=== PATIENT | male | born 1930 | race Caucasian/White ===

== ENCOUNTER 2017-02-06 16:36 | Inpatient (IN) | payer MEDICARE ==
[~2017-02-06] VITALS: Ht 172.7 cm; Wt 70.0 kg
[2017-02-06] MEDS ORDERED: SODIUM CHLORIDE 0.9% 1,000 ML IV ONE (16:39)
[2017-02-06] MEDS ORDERED: CEFTRIAXONE PMX 1GM/50ML 50 ML IVPB ONE (17:00)
[2017-02-06] MEDS ORDERED: SODIUM CHLORIDE 0.9% 1,000ML IVBOLUS ONE (17:00)
[2017-02-06] MEDS ORDERED: SODIUM CHLORIDE FLUSH 10ML SYR IVF ONE (17:00)
[2017-02-06] MEDS ORDERED: PLEASE ENTER ALLERGIES MC SCH ×2 (17:00)
[2017-02-06] MEDS ORDERED: PLEASE ENTER HEIGHT AND WEIGHT MC SCH (17:00)
[2017-02-06] MEDS ORDERED: CEFTRIAXONE PMX 1GM/50ML 50 ML ONE (17:19)
[2017-02-06] MEDS ORDERED: IBUPROFEN 200 MG TABLET ONE (17:19)
[2017-02-06 17:20] LABS: WHITE BLOOD COUNT 18.6 x10^3/uL (3.4-10)
[2017-02-06 17:33] LABS: ASPARTATE AMINO TRANSFERASE 18 U/L (15-37); BLOOD UREA NITROGEN 16 mg/dL (7-18)
[2017-02-06 17:59] LABS: DIFF TOTAL CELLS COUNTED 100 CELL DIFF
[2017-02-06] MEDS ORDERED: IBUPROFEN 200 MG TABLET PO ONE (18:00)
[2017-02-06] MEDS ORDERED: ALBUTEROL/IPRATROPIUM 2.5MG/0.5MG, 3 ML ONE (18:12)
[2017-02-06 18:13] LABS: VERIFY COUNTS? YES
[2017-02-06] MEDS ORDERED: SODIUM CHLORIDE FLUSH 10ML SYR IVF PRN (18:30)
[2017-02-06] MEDS ORDERED: OMEP20TA62 PO (18:35)
[2017-02-06] MEDS ORDERED: METH10TA6 PO (18:35)
[2017-02-06] MEDS ORDERED: SIMV10TA3 PO (18:35)
[2017-02-06] MEDS ORDERED: APIX5TAB PO (18:35)
[2017-02-06] MEDS ORDERED: AMIO100T4 PO (18:35)
[2017-02-06] MEDS ORDERED: METO25TA91 PO (18:35)
[2017-02-06] MEDS: SODIUM CHLORIDE 0.9% 1,000 ML IV SCH (20:33)
[2017-02-06] MEDS ORDERED: hydrALAzine 20 MG/ML, 1ML IVPush PRN (21:00)
[2017-02-06] MEDS ORDERED: BISACODYL 10 MG SUPP PR PRN (21:00)
[2017-02-06] MEDS ORDERED: OXYcodone IR 5MG TABLET PO PRN (21:00)
[2017-02-06] MEDS: METOPROLOL SUCCINATE 25 MG TAB.ER.24H PO SCH (21:00)
[2017-02-06] MEDS ORDERED: ENALAPRILAT 1.25 MG/ML, 2ML IVPush PRN (21:00)
[2017-02-06] MEDS ORDERED: ONDANSETRON 2MG/ML, 2ML IVPush PRN (21:00)
[2017-02-06] MEDS ORDERED: morphine SULFATE 10 MG/ML, 1ML IVPush PRN (21:00)
[2017-02-06] MEDS ORDERED: POLYETHYLENE GLYCOL 17 GM PACKET PO PRN (21:00)
[2017-02-06] MEDS ORDERED: DOCUSATE 100 MG CAPSULE PO PRN (21:00)
[2017-02-06] MEDS ORDERED: CEFTRIAXONE PMX 1GM/50ML 50 ML IV SCH (21:00)
[2017-02-06 21:27] VITALS: BP 81/47
[2017-02-06] MEDS: DOXYCYCLINE 100 MG in DEXTROSE 5% 250 ML IV SCH (22:23)
[2017-02-06] MEDS: APIXABAN 5 MG TABLET PO SCH (22:24)
[2017-02-06] MEDS: SIMVASTATIN 10 MG TABLET PO SCH (22:24)
[2017-02-06 23:27] VITALS: BP 98/56
[2017-02-07 02:17] VITALS: BP 98/61
[2017-02-07] MEDS: SODIUM CHLORIDE 0.9% 1,000 ML IV SCH ×2 (05:01→17:41)
[2017-02-07 05:36] LABS: HEMATOCRIT 36.6 % (39.2-51.8); HEMOGLOBIN 12.5 g/dL (13.7-18.0); WHITE BLOOD COUNT 12.8 x10^3/uL (3.4-10)
[2017-02-07 05:57] LABS: ASPARTATE AMINO TRANSFERASE 17 U/L (15-37); BLOOD UREA NITROGEN 11 mg/dL (7-18)
[2017-02-07 07:09] VITALS: BP 105/61
[2017-02-07] MEDS: ACETAMINOPHEN 325 MG TABLET PO PRN ×2 (07:37→17:43)
[2017-02-07] MEDS: APIXABAN 5 MG TABLET PO SCH ×2 (07:38→20:46)
[2017-02-07] MEDS: OMEPRAZOLE 20 MG CAPSULE.DR PO SCH (07:38)
[2017-02-07] MEDS: METOPROLOL SUCCINATE 25 MG TAB.ER.24H PO SCH ×2 (07:38→20:45)
[2017-02-07] MEDS: DOXYCYCLINE 100 MG in DEXTROSE 5% 250 ML IV SCH (09:10)
[2017-02-07] MEDS ORDERED: POTASSIUM CHLORIDE 20 MEQ TAB.ER.PRT PO ONE (10:00)
[2017-02-07] MEDS ORDERED: PHARMACOKINETIC MONITORING MC PRN (10:00)
[2017-02-07] MEDS ORDERED: PHARMACOKINETIC CONSULTATION MC ONE (10:00)
[2017-02-07] MEDS ORDERED: VANCOMYCIN PER PHARMACY MC PRN (10:00)
[2017-02-07] MEDS ORDERED: VANCOMYCIN PMX 1GM/200ML 200 ML IV ONE (10:00)
[2017-02-07] MEDS: PIPERACILLIN/TAZO/PMX 3.375GM 50 ML IV SCH ×3 (10:17→23:24)
[2017-02-07] MEDS: VANCOMYCIN 1,200 MG in SODIUM CHLORIDE 0.9% 250 ML IV SCH (11:25)
[2017-02-07 13:35] VITALS: BP 95/56
[2017-02-07 19:31] VITALS: BP 96/62
[2017-02-07] MEDS: SIMVASTATIN 10 MG TABLET PO SCH (20:45)
[2017-02-08] MEDS: SODIUM CHLORIDE 0.9% 1,000 ML IV SCH
[2017-02-08 02:35] VITALS: BP 104/63
[2017-02-08] MEDS ORDERED: ACETAMINOPHEN 650 MG SUPP PR PRN (03:30)
[2017-02-08] MEDS: PIPERACILLIN/TAZO/PMX 3.375GM 50 ML IV SCH ×4 (04:00→21:52)
[2017-02-08 05:25] LABS: HEMATOCRIT 35.2 % (39.2-51.8); WHITE BLOOD COUNT 8.1 x10^3/uL (3.4-10)
[2017-02-08 05:36] LABS: BLOOD UREA NITROGEN 10 mg/dL (7-18)
[2017-02-08 07:22] VITALS: BP 108/68
[2017-02-08] MEDS: OMEPRAZOLE 20 MG CAPSULE.DR PO SCH (09:00)
[2017-02-08] MEDS: VANCOMYCIN 1,200 MG in SODIUM CHLORIDE 0.9% 250 ML IV SCH (11:00)
[2017-02-08] MEDS: APIXABAN 5 MG TABLET PO SCH ×2 (11:57→20:26)
[2017-02-08] MEDS: METOPROLOL SUCCINATE 25 MG TAB.ER.24H PO SCH ×2 (11:58→20:26)
[2017-02-08 13:49] VITALS: BP 107/69
[2017-02-08 19:41] VITALS: BP 115/71
[2017-02-08] MEDS: SIMVASTATIN 10 MG TABLET PO SCH (20:26)
[2017-02-08] MEDS: ACETAMINOPHEN 325 MG TABLET PO PRN (21:59)
[2017-02-09 02:40] VITALS: BP 93/69
[2017-02-09] MEDS: PIPERACILLIN/TAZO/PMX 3.375GM 50 ML IV SCH ×4 (04:46→22:42)
[2017-02-09 05:32] LABS: HEMATOCRIT 36.8 % (39.2-51.8); HEMOGLOBIN 12.7 g/dL (13.7-18.0); WHITE BLOOD COUNT 6.9 x10^3/uL (3.4-10)
[2017-02-09 05:34] LABS: BLOOD UREA NITROGEN 10 mg/dL (7-18)
[2017-02-09 08:06] VITALS: BP 86/54
[2017-02-09] MEDS: OMEPRAZOLE 20 MG CAPSULE.DR PO SCH (08:50)
[2017-02-09] MEDS: METOPROLOL SUCCINATE 25 MG TAB.ER.24H PO SCH ×3 (08:50→20:34)
[2017-02-09] MEDS: APIXABAN 5 MG TABLET PO SCH ×2 (08:51→20:34)
[2017-02-09] MEDS: SODIUM CHLORIDE 0.9% 1,000 ML IV SCH (10:59)
[2017-02-09] MEDS: VANCOMYCIN 1,200 MG in SODIUM CHLORIDE 0.9% 250 ML IV SCH (14:08)
[2017-02-09 14:21] VITALS: BP 111/70
[2017-02-09 19:22] VITALS: BP 102/66
[2017-02-09] MEDS: SIMVASTATIN 10 MG TABLET PO SCH (20:35)
[2017-02-09] MEDS: ACETAMINOPHEN 325 MG TABLET PO PRN (20:36)
[2017-02-09] MEDS ORDERED: BISACODYL 10 MG SUPP PR PRN (21:30)
[2017-02-09] MEDS ORDERED: ENALAPRILAT 1.25 MG/ML, 2ML IVPush PRN (21:30)
[2017-02-09] MEDS ORDERED: POLYETHYLENE GLYCOL 17 GM PACKET PO PRN (21:30)
[2017-02-09] MEDS ORDERED: DOCUSATE 100 MG CAPSULE PO PRN (21:30)
[2017-02-09] MEDS ORDERED: hydrALAzine 20 MG/ML, 1ML IVPush PRN (21:30)
[2017-02-09] MEDS ORDERED: ONDANSETRON 2MG/ML, 2ML IVPush PRN (21:30)
[2017-02-10] MEDS: SODIUM CHLORIDE 0.9% 1,000 ML IV SCH (00:36)
[2017-02-10 01:46] VITALS: BP 109/62
[2017-02-10] MEDS: PIPERACILLIN/TAZO/PMX 3.375GM 50 ML IV SCH (05:06)
[2017-02-10] MEDS: ACETAMINOPHEN 325 MG TABLET PO PRN ×3 (05:08→21:19)
[2017-02-10 05:15] LABS: HEMATOCRIT 36.8 % (39.2-51.8); HEMOGLOBIN 12.2 g/dL (13.7-18.0); WHITE BLOOD COUNT 7.5 x10^3/uL (3.4-10)
[2017-02-10 05:33] LABS: BLOOD UREA NITROGEN 9 mg/dL (7-18)
[2017-02-10 08:30] VITALS: BP 94/59
[2017-02-10] MEDS: OMEPRAZOLE 20 MG CAPSULE.DR PO SCH (08:33)
[2017-02-10] MEDS: APIXABAN 5 MG TABLET PO SCH ×2 (08:33→21:14)
[2017-02-10] MEDS: METOPROLOL SUCCINATE 25 MG TAB.ER.24H PO SCH ×2 (08:33→21:14)
[2017-02-10] MEDS: LEVOFLOXACIN/PMX 750MG/150ML 150 ML IV SCH (10:46)
[2017-02-10] MEDS: VANCOMYCIN 1,200 MG in SODIUM CHLORIDE 0.9% 250 ML IV SCH (12:31)
[2017-02-10 13:46] VITALS: BP 105/66
[2017-02-10] MEDS ORDERED: OMNIPAQUE 350 MG/ML, 75ML BOTTLE ONE (14:22)
[2017-02-10 19:45] VITALS: BP 105/64
[2017-02-10] MEDS: SIMVASTATIN 10 MG TABLET PO SCH (21:13)
[2017-02-11 01:30] VITALS: BP 123/71
[2017-02-11] MEDS: ACETAMINOPHEN 325 MG TABLET PO PRN ×3 (03:31→19:12)
[2017-02-11 05:24] LABS: HEMATOCRIT 35.7 % (39.2-51.8); HEMOGLOBIN 12.2 g/dL (13.7-18.0); WHITE BLOOD COUNT 7.7 x10^3/uL (3.4-10)
[2017-02-11 05:30] LABS: BLOOD UREA NITROGEN 8 mg/dL (7-18)
[2017-02-11 07:20] VITALS: BP 107/65
[2017-02-11] MEDS: APIXABAN 5 MG TABLET PO SCH ×2 (09:39→21:42)
[2017-02-11] MEDS: METOPROLOL SUCCINATE 25 MG TAB.ER.24H PO SCH ×2 (09:39→21:42)
[2017-02-11] MEDS: OMEPRAZOLE 20 MG CAPSULE.DR PO SCH (09:40)
[2017-02-11] MEDS: LEVOFLOXACIN/PMX 750MG/150ML 150 ML IV SCH (09:45)
[2017-02-11 14:02] VITALS: BP 103/64
[2017-02-11 20:08] VITALS: BP 105/63
[2017-02-11] MEDS ORDERED: POTASSIUM CHLORIDE 20 MEQ TAB.ER.PRT PO ONE (20:30)
[2017-02-11 21:40] VITALS: BP 125/72
[2017-02-11] MEDS: SIMVASTATIN 10 MG TABLET PO SCH (21:42)
[2017-02-12] MEDS: ACETAMINOPHEN 325 MG TABLET PO PRN ×2 (00:58→10:48)
[2017-02-12 01:10] VITALS: BP 127/75
[2017-02-12 05:08] LABS: HEMATOCRIT 39.1 % (39.2-51.8); HEMOGLOBIN 13.3 g/dL (13.7-18.0); WHITE BLOOD COUNT 8.7 x10^3/uL (3.4-10)
[2017-02-12 05:17] LABS: BLOOD UREA NITROGEN 9 mg/dL (7-18)
[2017-02-12 07:33] VITALS: BP 118/71
[2017-02-12] MEDS: APIXABAN 5 MG TABLET PO SCH (10:48)
[2017-02-12] MEDS: OMEPRAZOLE 20 MG CAPSULE.DR PO SCH (10:48)
[2017-02-12] MEDS: METOPROLOL SUCCINATE 25 MG TAB.ER.24H PO SCH (10:48)
[2017-02-12] MEDS: LEVOFLOXACIN/PMX 750MG/150ML 150 ML IV SCH (10:49)
[2017-02-12] MEDS ORDERED: LEVO750T26 PO (11:39)
[2017-02-12] MEDS ORDERED: POTASSIUM CHLORIDE 20 MEQ TAB.ER.PRT PO ONE (12:30)
[2017-02-12 13:35] VITALS: BP 127/67
== END 2017-02-12 15:15 | disposition home or self-care (01) | DRG 871 ==
LOC: ED 18:15 → EDIP 18:16 → ED 19:15 → 4WST 21:20
PROVIDERS: ADMIT Internal Medicine; ATTEND Internal Medicine
DX: A41.9 Sepsis, unspecified organism (principal); R65.21 Severe sepsis with septic shock; I48.2 Chronic atrial fibrillation; J18.1 Lobar pneumonia, unspecified organism; D64.9 Anemia, unspecified; E05.90 Thyrotoxicosis, unspecified without thyrotoxic crisis or storm; E78.5 Hyperlipidemia, unspecified; Z95.0 Presence of cardiac pacemaker; Z90.49 Acquired absence of other specified parts of digestive tract
CPT/HCPCS: 36415; 71010; 71260; 74230; 80048; 80053; 80061; 80202; 81001; 83036; 83605; 83735; 84145; 84443; 85025; 85610; 85730; 86480; 87040; 87070; 87205; 87324; 93005; 96365; J0696; J1956; J2543; J3370; J7060; Q9967; J7030; J7050